=== PATIENT | female | born 1975 | race Hispanic/Latino ===

== ENCOUNTER → 2024-01-27 | Day surgery (SDC) | payer OTHER ==
[~2024-01-27] MED LIST: BIOTIN1 MG PO; CALCIUM ACETAT667 MG PO; COLLAGEN 15001 EACH PO; FERROUS SULFAT324 MG PO; GLYCOPYRROLATE INJ 0.2 MG/ML VIAL ONE; LIDOCAINE HCL 2% LOCAL INJ 5 ML SDV VIAL INJ ONE; MULTI-VITAMIN1 EACH PO; OMEPRAZOLE40 MG PO; PROPOFOL IV EMULSION 10 MG/ML 50 ML VIAL IV ONE; VITAMIN D3 COM1 EACH PO; ZESTRIL40 MG PO
[2024-01-27] MEDS: LACTATED RINGER'S 1,000 ML ONE (07:51)
[2024-01-27 10:30] VITALS: BP 104/75; PULSE 71; RESP 16; TEMP 97.5; O2SAT 98
== END | disposition home or self-care (01) ==
LOC: OR 06:45
PROVIDERS: ATTEND Internal Medicine Gastroenterology
DX: R19.5 Other fecal abnormalities (principal); K63.5 Polyp of colon; K59.00 Constipation, unspecified; K64.8 Other hemorrhoids; K21.9 Gastro-esophageal reflux disease without esophagitis; I10 Essential (primary) hypertension; G89.29 Other chronic pain; M19.90 Unspecified osteoarthritis, unspecified site; F41.9 Anxiety disorder, unspecified; Z01.810 Encounter for preprocedural cardiovascular examination; Z79.899 Other long term (current) drug therapy
CPT/HCPCS: 45385; 81025; 93005; J2001; J2704; J7121; 45378